=== PATIENT | male | born 1975 | race Caucasian/White ===

== ENCOUNTER 2017-06-24 05:38 | Day surgery (SDC) | payer OTHER ==
[~2017-06-24] VITALS: Ht 177.8 cm; Wt 129.4 kg
[2017-06-24] VITALS (8 sets, daily range): BP systolic 110–135; BP diastolic 73–89; PULSE 77–93; TEMP 97.4–98.5
[~2017-06-24 05:38] MED LIST: NORCO 325 MG-51 TAB PO; PRIL40 PO
[2017-06-24] MEDS ORDERED: MOTRIN 200200 MG/TAB PO (06:30)
[2017-06-24] MEDS ORDERED: NORCO 325 MG-7.1 TAB PO (09:25)
[2017-06-24] MEDS ORDERED: ZOFRAN 4MG T4 MG/TAB PO (09:25)
== END 2017-06-24 12:55 | disposition home or self-care (01) ==
LOC: SDCO 05:38
DX: K43.2 Incisional hernia without obstruction or gangrene (principal); F17.210 Nicotine dependence, cigarettes, uncomplicated; Z80.9 Family history of malignant neoplasm, unspecified
CPT/HCPCS: C1781; J0171; J0330; J0690; J1100; J1885; J2270; J2405; J2704; J3010; J7120